=== PATIENT | female | born 1985 | race Caucasian/White ===

== ENCOUNTER 2017-09-20 11:39 | Emergency (ER) | payer OTHER ==
[~2017-09-20] VITALS: Ht 180.3 cm; Wt 89.7 kg
[~2017-09-20 11:39] MED LIST: LEVAQUIN750 MG PO; LORTAB 5-325 M1 EACH PO; MOTRIN400 MG PO; MOTRIN800 MG PO; MUCUS RELIEF600 MG PO; Motrin PO; PERCOCET 5/31 TABLET PO; Percocet 5/325,Endoc PO; SKYLA1 EACH IY; SYNTHROID137 MCG PO; ULTRAM50 MG PO
[2017-09-20 12:12] LABS: HEMATOCRIT 41.8 % (36.0-46.0); HEMOGLOBIN 14.6 G/DL (11.9-15.5); MCH 31.3 PG (29.0-34.0); MCHC 34.9 G/DL (30.0-36.0); MCV 89.5 FL (83-99); PLATELET COUNT 220 K/uL (156-360); RBC DIS.WIDTH-CV 11.5 % (11.8-14.6); RBC DIS.WIDTH-SD 37.2 % (39-53); RED BLOOD COUNT 4.67 M/uL (3.80-5.20); WHITE BLOOD COUNT 4.1 K/uL (4.1-10.2)
[2017-09-20 12:27] LABS: APPEARANCE CLOUDY ((CLEAR)); BILIRUBIN NEGATIVE; BLOOD NEGATIVE; COLOR AMBER ((YELLOW)); GLUCOSE (STRIP) NEGATIVE; KETONES NEGATIVE; LEUKOCYTES NEGATIVE; NITRITE NEGATIVE; PROTEIN (STRIP) 30; SPECIFIC GRAVITY 1.023 (1.000-1.030); UROBILINOGEN 0.2 MG/DL (0.2-1.0)
[2017-09-20 12:32] LABS: QUANTITATIVE HCG < 4.0 MIU/ML
[2017-09-20 12:43] LABS: RED BLOOD CELLS NONE SEEN /HPF (0-5)
[2017-09-20 12:44] LABS: BACTERIA 1+ /HPF; EPITHELIAL CELLS 1+ /HPF; MUCUS 2+ /LPF; UCUL ADDED? NO; WHITE BLOOD CELLS 0-5 /HPF (0-5)
[2017-09-20 12:45] LABS: AMORPHOUS PHOSPHATE CRYSTALS 2+
[2017-09-20 13:06] LABS: ALBUMIN 4.8 G/DL (3.2-4.8); ALKALINE PHOSPHATASE 39 IU/L (3-129); ALT (GPT) 14 IU/L (3-49); AST (GOT) 21 IU/L (2-34); CHLORIDE 106 MEQ/L (99-109); CREATININE 0.9 MG/DL (0.6-1.3); GFR ESTIMATE (CALCULATED) > 59 mL/min/; GLUCOSE 102 mg/dL (70-99); POTASSIUM 3.8 MEQ/L (3.7-5.4); SODIUM 140 MEQ/L (136-147); TOTAL BILIRUBIN 0.6 MG/DL (0.0-1.0); TOTAL PROTEIN 7.2 G/DL (6.4-8.3); UREA NITROGEN (BUN) 12 mg/dL (9-23)
[2017-09-20] MEDS ORDERED: BENTYL10 MG PO (15:43)
[2017-09-20] MEDS ORDERED: ZOFRAN4 MG PO (15:43)
[2017-09-20 16:02] VITALS: BP 100/55
== END 2017-09-20 16:03 | disposition home or self-care (01) ==
LOC: EME 11:39
DX: R10.31 Right lower quadrant pain (principal); R11.0 Nausea; M32.9 Systemic lupus erythematosus, unspecified; J45.909 Unspecified asthma, uncomplicated; Z90.710 Acquired absence of both cervix and uterus; Z88.2 Allergy status to sulfonamides; Z88.0 Allergy status to penicillin
CPT/HCPCS: 74177; 76856; 80053; 81003; 84702; 85027; 99281; 99285; J2270; J2405; J7030